=== PATIENT | female | born 1990 | race African-American/Black ===

== ENCOUNTER 2019-04-23 15:48 | Emergency (ER) | payer MEDICAID ==
[~2019-04-23] VITALS: Ht 170.2 cm; Wt 43.2 kg
[2019-04-23 15:58] VITALS: Ht 170.2 cm; Wt 43.2 kg
[2019-04-23] MEDS ORDERED: VALIUM5 MG PO (15:59)
[2019-04-23 19:48] VITALS: BP 120/72
== END 2019-04-23 19:48 | disposition home or self-care (01) ==
LOC: D.ER 15:48
DX: K94.23 Gastrostomy malfunction (principal)

== ENCOUNTER 2020-05-24 12:01 | Emergency (ER) | payer MEDICAID ==
[~2020-05-24] VITALS: Ht 172.7 cm; Wt 45.5 kg
[~2020-05-24 12:01] MED LIST: VALIUM5 MG PO
[2020-05-24 12:08] VITALS: Ht 172.7 cm; Wt 45.5 kg
[2020-05-24 14:07] VITALS: BP 122/64
[2020-05-25 09:56] VITALS: Ht 172.7 cm; Wt 45.5 kg
[2020-05-25] MEDS ORDERED: HYDROCODON-ACET15 ML GT (11:11)
== END 2020-05-24 14:10 | disposition home or self-care (01) ==
LOC: D.ER 12:01
DX: Z43.1 Encounter for attention to gastrostomy (principal); G80.9 Cerebral palsy, unspecified; R13.10 Dysphagia, unspecified

== ENCOUNTER 2020-05-25 08:48 | Day surgery (SDC) | payer MEDICAID ==
[~2020-05-25] VITALS: Ht 172.7 cm; Wt 45.5 kg
--- NOTE | ~2020-05-25 | OP ---
PATIENT NAME: ARAMIS PERALTA MEDICAL RECORD: [id number] :86 LOCATION:D.OPS ADMISSION DATE: SURGEON: RYAN BOB MD DATE OF OPERATION: 05/25/2020 PREOPERATIVE DIAGNOSES: 1. Cerebral palsy. 2. Seizure disorder. 3. Dysphagia with misplaced feeding tube. POSTOPERATIVE DIAGNOSES: 1. Cerebral palsy. 2. Seizure disorder. 3. Dysphagia with misplaced feeding tube. PROCEDURE: PEG placement (20-Uzbek). SURGEON: Ryan Bob MD REPORT OF PROCEDURE: An Olympus endoscope was advanced through the mouth and esophagus. As we entered the stomach, we could see the area where the previous feeding tube entered the antrum. A total of 5 cc of 1% lidocaine was infused into the skin at the entrance site. A needle was then used to cannulate through the skin into the gastric lumen. A wire was advanced through this needle and we were able to grasp this with an Endo snare. The snare and wire were pulled out through the mouth and esophagus. We affixed the 20-Uzbek PEG tube to the wire and pulled this through the mouth and esophagus through the abdominal wall until it rested at 2 cm at the skin. The scope was reinserted and we could see there was no sign of any active bleeding. At this point, the insufflation was removed. COMPLICATIONS: None. CONDITION: Stable. ANESTHESIA: TIVA. BLOOD LOSS: Minimal. TRANSINT:[id number] Voice Confirmation ID: [id number] DOCUMENT ID: [id number] RYAN BOB MD CC: [id number] DICTATION DATE: 05/25/20 1114 CERTIFIED PROSTHETIST: 05/25/20 1434 [id number] [place] [address]
[2020-05-25 09:56] VITALS: BP 93/65; Ht 172.7 cm; Wt 45.5 kg
[2020-05-25] MEDS ORDERED: HYDROCODON-ACET15 ML GT (11:11)
[2020-05-25 11:46] LABS: HEMOGLOBIN 11.2 g/dL (12-16); MCH 28.6 pg (26.0-34.0); MCHC 31.1 g/dL (31.0-37.0); MCV 91.8 fL (80.0-100.0); MEAN PLATELET VOLUME 9.7 fL (7.4-10.4); RBC 3.92 10x6/uL (4.00-5.40); RDW 17.8 % (11.5-14.5); WBC 10.6 10x3/uL (4.8-10.8)
[2020-05-25 11:58] LABS: CALC OSMOLALITY 279 mosm/kg (275-300); CALCIUM 9.1 mg/dL (8.5-10.1); CARBON DIOXIDE 21.5 mmol/L (21.0-32.0); CHLORIDE - SERUM 101 mmol/L (98-107); CREATININE - SERUM 0.4 mg/dL (0.6-1.3); POTASSIUM - SERUM 4.1 mmol/L (3.5-5.1); SODIUM 138 mmol/L (136-145); UREA NITROGEN 28 mg/dL (7-18); eGFR NON AFRICAN AMERICAN > 90 mL/min (90-120)
[2020-05-25 12:05] LABS: GLUCOSE 67 mg/dL (74-106)
[2020-05-25 12:06] LABS: HCG SERUM NEGATIVE (NEGATIVE)
--- NOTE | 2020-05-25 15:49 | NUR ---
1200 IV REMOVED AND PRESSURE HELD. LAB HERE TO DRAW LAB.PT EYES OPEN DOESNT TALK. MOTHER AT BEDSIDE
== END 2020-05-25 12:20 | disposition home or self-care (01) ==
LOC: D.OPS 08:48
PROVIDERS: Anesthesiology; ATTEND Surgery
DX: G80.9 Cerebral palsy, unspecified (principal); G40.909 Epilepsy, unspecified, not intractable, without status epilepticus; R13.10 Dysphagia, unspecified; K94.23 Gastrostomy malfunction